=== PATIENT | male | born 1995 | race Caucasian/White ===

== ENCOUNTER 2020-05-22 19:51 | Emergency (ER) | payer OTHER, SELFPAY ==
--- NOTE | ~2020-05-22 | XR_ITS ---
EXAMINATION: XR shoulder LT min 2V INDICATION: Left shoulder pain and dislocation TECHNIQUE: Two views of the left shoulder are obtained. COMPARISON: None available FINDINGS: There is anterior and inferior dislocation of the humeral head with respect to the glenoid. No fracture is identified. IMPRESSION: 1. Anterior/inferior humeral head dislocation. Reviewed, dictated and finalized at location A.
--- NOTE | ~2020-05-22 | XR_ITS ---
EXAMINATION: XR shoulder LT min 2V INDICATION: Reduced shoulder dislocation TECHNIQUE: Two views of the left shoulder are obtained. COMPARISON: 2028 FINDINGS: The previously described glenohumeral dislocation has been reduced. Alignment is anatomic. No fracture is identified. IMPRESSION: 1. Reduced shoulder dislocation. Reviewed, dictated and finalized at location A.
[2020-05-22 19:52] VITALS: BP 148/83; PULSE 80; RESP 14; TEMP 36.6; O2SAT 98
[2020-05-22] MEDS: IBUPROFEN 600 MG TABLET PO (20:52)
--- NOTE | 2020-05-22 21:13 | ED.UPPEXIN ---
HPI - Extremity Injury (Upper) General Chief Complaint: Extremity Injury, Upper Stated Complaint: L shoulder dislocation Time Seen by Provider: 05/22/20 20:25 Source: patient and family Mode of arrival: ambulatory Limitations: no limitations History of Present Illness HPI narrative: Patient is a 24-year-old male who presents to emergency department for evaluation of left shoulder injury that occurred just prior to arrival patient was sliding into a base while playing softball at which point he felt a pop in the left shoulder since had severe pain with decreased range of motion tested patient denies other injuries or complaints or radicular symptoms or paresthesias. Patient has not had anything for pain Related Data Allergies Allergy/AdvReac Type Severity Reaction Status Date / Time No Known Allergies Allergy Verified 05/22/20 20:45 Review of Systems Review of Systems: All systems reviewed & are unremarkable except as noted in HPI and below PMFSH Social History Social History (Updated 05/22/20 @ 21:15 by Tristian Golden PA-C) Smoking status: Never smoker Exam Narrative: Exam Narrative: GENERAL: Well-appearing, well-nourished, and in no acute distress. HEAD: Normocephalic, atraumatic. EYES: PERRLA and EOMI. ENT: Nares clear, no rhinorrhea or epistaxis. Mucous membranes moist. CHEST: Clear to auscultation. No respiratory distress. No wheezes rales or rhonchi HEART: Regular rate and rhythm. No murmur heard. EXTREMITIES: Deformity of the left shoulder joint with tenderness to palpation neurovascularly intact SKIN: Warm, dry, no rash. NEURO: No focal deficits. Alert and oriented x3. PSYCH: Normal mood and affect. Course Course Emergency Course: Patient shoulder reduced placed in immobilizer agreeing to follow-up with orthopedic surgeon Vital Signs Vital signs: Vital Signs Temperature 97.8 F 05/22/20 19:52 Pulse Rate 80 05/22/20 19:52 Respiratory Rate 14 05/22/20 19:52 Blood Pressure 148/83 H 05/22/20 19:52 Pulse Oximetry 98 05/22/20 19:52 Temperature 97.8 F 05/22/20 19:52 Pulse Rate 80 05/22/20 19:52 Respiratory Rate 14 05/22/20 19:52 Blood Pressure 148/83 H 05/22/20 19:52 Pulse Oximetry 98 05/22/20 19:52 Procedures Orthopedic Joint Reduction Joint #1: Orthopedic Joint Reduction Date: 05/22/20 Orthopedic Joint Reduction Time: 21:16 Time Out Performed: Yes Side: left Joint Reduction Location: shoulder Analgesia: none Pre-Procedure Neuro Vascular Exam: normal Shoulder Technique Used (if applicable): external rotation Technique used: direct manipulation Post-reduction neuro exam: intact Post-reduction vascular: intact Post Reduction X-Ray Obtained: Yes Post Reduction X-Ray Results: reduced Additional Comments: Patient placed in a shoulder MDM - Extremity Injury (Upper) MDM Narrative Medical decision making narrative: Patients injury or pain is consistent with musculoskeletal etiology. No signs of neurological or vascular compromise on exam. Compartments and tisues are soft without signs of compartment syndrome. Pain is felt appropriate for further evaluation on an outpatient basis. Patient will be sent home with ibuprofen for pain management Imaging Data Radiologist's impression: ITS Impressions Shoulder X-Ray 05/22/20 20:42 IMPRESSION: 1. Anterior/inferior humeral head dislocation. Discharge Plan Discharge Clinical Impression: Anterior dislocation of left shoulder Patient Disposition: Home, Self-Care Condition: Stable Instructions: Antibiotic Form, Shoulder Dislocation (ED) Additional Instructions: Follow-up with orthopedic surgery first thing tomorrow to set up for reevaluation rest intermittent icing for symptom relief Wear shoulder immobilizer Follow patient education sheets Only take medications as directed Prescriptions: New ibuprofen
[2020-05-22 21:30] VITALS: BP 131/74; PULSE 71; RESP 16; O2SAT 99
== END 2020-05-22 21:30 | disposition home or self-care (01) ==
PROVIDERS: Emergency Provider Emergency Medicine
DX: S43.015A Anterior dislocation of left humerus, initial encounter (principal); Y93.64 Activity, baseball; X50.9XXA Other and unspecified overexertion or strenuous movements or postures, initial encounter
CPT/HCPCS: 23650; 73030; 99285; A9270

== ENCOUNTER 2021-04-19 12:50 | Emergency (ER) | payer OTHER, SELFPAY ==
--- NOTE | ~2021-04-19 | XR_ITS ---
EXAMINATION: XR shoulder LT min 2V INDICATION: Reduced shoulder dislocation TECHNIQUE: Two views of the left shoulder are submitted. COMPARISON: 1306 hours FINDINGS: The previously described glenohumeral dislocation has been reduced. Alignment is normal. Th ere is no fracture. IMPRESSION: 1. Reduced left shoulder dislocation. Reviewed, dictated and finalized at location A.
--- NOTE | ~2021-04-19 | XR_ITS ---
EXAMINATION: XR shoulder LT min 2V INDICATION: Left shoulder deformity TECHNIQUE: Three views of the left shoulder are submitted. COMPARISON: 05/22/2020 FINDINGS: There is anterior and inferior dislocation of the humeral head with respect to glenoid. No fracture is identified. The soft tissues are unremarkable. IMPRESSION: 1. Anterior/inferior dislocation of the left humeral head. Reviewed, dictated and finalized at location A.
[2021-04-19 12:59] VITALS: BP 165/89; PULSE 86; RESP 16; TEMP 36.6; O2SAT 99
--- NOTE | 2021-04-19 13:29 | ED.UPPEXIN ---
HPI - Extremity Injury (Upper) General Chief Complaint: Extremity Injury, Upper Stated Complaint: left shoulder dislo Time Seen by Provider: 04/19/21 13:00 Source: patient and family Mode of arrival: ambulatory Limitations: no limitations History of Present Illness HPI narrative: 25-year-old male Patient was playing golf with his dad on Father's Day The frustrations inherent to the game caused him to slam his golf club down to the turf using his left arm, but when he shara it back behind his head to add force to the maneuver his shoulder dislocated Shoulder was previously dislocated last summer, unclear how long he was immobilized then, but never did follow-up with Ortho or get any rehab Patient does state that he usually enjoys playing golf and would like to continue to do so and would consider a surgical remedy to prevent repeated dislocations if it was thought to be warranted Related Data Allergies Allergy/AdvReac Type Severity Reaction Status Date / Time No Known Allergies Allergy Verified 04/19/21 12:50 Review of Systems Musculoskeletal: Musculoskeletal: Reports arthralgias and Reports joint swelling Neurologic: Denies focal weakness, Denies numbness and Denies weakness [facility] Social History Social History (Updated 05/22/20 @ 21:15 by Tristian Golden PA-C) Smoking status: Never smoker Exam Const: General: healthy appearing and alert Orientation/consciousness: patient oriented x3 HENMT: Head: normal to inspection Resp: Effort & Inspection: normal respiratory effort and not labored Neuro: General: patient oriented x3, moves all extremities and no focal motor deficits Other: Motor and sensation intact to the left forearm and hand Extrem: Other: Squared off deformity to left shoulder with humeral head palpable anteriorly, guards range of motion, exam is consistent with anterior dislocation Course Vital Signs Vital signs: Vital Signs Temperature 36.6 C 04/19/21 12:59 Pulse Rate 86 04/19/21 12:59 Respiratory Rate 16 04/19/21 12:59 Blood Pressure 165/89 H 04/19/21 12:59 Pulse Oximetry 99 04/19/21 12:59 Temperature 36.6 C 04/19/21 12:59 Pulse Rate 86 04/19/21 12:59 Respiratory Rate 16 04/19/21 12:59 Blood Pressure 165/89 H 04/19/21 12:59 Pulse Oximetry 99 04/19/21 12:59 Procedures Orthopedic Joint Reduction Joint #1: Orthopedic Joint Reduction Date: 04/19/21 Orthopedic Joint Reduction Time: 13:15 Side: left Joint Reduction Location: shoulder Analgesia: none Pre-Procedure Neuro Vascular Exam: normal Local Anesthesia: none Shoulder Technique Used (if applicable): other (Inferior traction, shoulder massage, scapular manipulation) Post-reduction neuro exam: intact Post-reduction vascular: intact Post Reduction X-Ray Obtained: Yes Post Reduction X-Ray Results: reduced Splint Applied: No Patient Tolerated Procedure: well MDM - Extremity Injury (Upper) Imaging Data Radiologist's impression: ITS Impressions Shoulder X-Ray 04/19/21 13:19 IMPRESSION: 1. Anterior/inferior dislocation of the left humeral head. Discharge Plan Discharge Clinical Impression: Recurrent anterior dislocation of left shoulder Patient Disposition: Home, Self-Care Condition: Stable Instructions: Shoulder Dislocation (ED) Additional Instructions: Chances are that extending and outwardly rotating that shoulder will dislocate it again so strongly recommend avoiding activities that might include that maneuver Aleve or Tylenol for pain as needed Follow-up/Referrals: Nav Barboza MD [Physician] - (Orthopedics, call next week for an appointment)
[2021-04-19 14:05] VITALS: BP 130/82; PULSE 66; RESP 18; O2SAT 100
== END 2021-04-19 14:02 | disposition home or self-care (01) ==
PROVIDERS: Emergency Provider Emergency Medicine
DX: M24.412 Recurrent dislocation, left shoulder (principal)
CPT/HCPCS: 23650; 73030; 99285